=== PATIENT | male | born 1995 | race African-American/Black ===

== ENCOUNTER 2017-07-10 11:52 | Emergency (ER) | payer OTHER ==
[~2017-07-10] VITALS: Ht 172.7 cm; Wt 115.7 kg
--- NOTE | 2017-07-10 12:17 | PHYS DOC ---
Past History Past Medical History: Asthma Past Surgical History: No Surgical History Alcohol Use: None Drug Use: None Adult General Chief Complaint Chief Complaint: FINGER INJURY HPI HPI 22-year-old male presents with right index finger pain. 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 He unfortunately got his right index finger smashed between the 2 pieces. He had pain and bleeding. Some of the skin was torn back just proximal to the nail. This pain is 7 out of 10. He denies any other injury. He has been otherwise healthy lately. His tetanus is not up-to-date Review of Systems Review of Systems Constitutional: Denies fever or chills [] Eyes: Denies change in visual acuity, redness, or eye pain [] HENT: Denies nasal congestion or sore throat [] Respiratory: Denies cough or shortness of breath [] Cardiovascular: No additional information not addressed in HPI [] GI: Denies abdominal pain, nausea, vomiting, bloody stools or diarrhea [] : Denies dysuria or hematuria [] Musculoskeletal: Right index finger pain[] Integument: Denies rash or skin lesions [] Neurologic: Denies headache, focal weakness or sensory changes [] Endocrine: Denies polyuria or polydipsia [] All other systems were reviewed and found to be within normal limits, except as documented in this note. Current Medications Current Medications Current Medications Medications (Trade) Dose Ordered Sig/Chi Start Time Stop Time Status Last Admin Dose Admin Diphtheria/ Tetanus/Acell Pertussis (Boostrix) 0.5 ml ONCE ONCE 07/10/17 12:15 07/10/17 12:16 UNV Allergies Allergies Allergies Coded Allergies Type Severity Reaction Last Updated Verified No Known Drug Allergies 01/13/16 No Physical Exam Physical Exam Constitutional: Well developed, well nourished, no acute distress, non-toxic appearance. [] HENT: Normocephalic, atraumatic, bilateral external ears normal, oropharynx moist, no oral exudates, nose normal. [] Eyes: PERRLA, EOMI, conjunctiva normal, no discharge. [] Neck: Normal range of motion, no tenderness, supple, no stridor. [] Cardiovascular:Heart rate regular rhythm, no murmur [] Lungs & Thorax: Bilateral breath sounds clear to auscultation [] Abdomen: Bowel sounds normal, soft, no tenderness, no masses, no pulsatile masses. [] Skin: 1.5 cm, half cervical skin avulsion of the dorsal aspect of the right index finger. The nail does not appear to be directly involved.[] Back: No tenderness, no CVA tenderness. [] Extremities: No tenderness, no cyanosis, no clubbing, ROM intact, no edema. [] Neurologic: Alert and oriented X 3, normal motor function, normal sensory function, no focal deficits noted. [] Psychologic: Affect normal, judgement normal, mood normal. [] EKG EKG [] Radiology/Procedures Radiology/Procedures History: Trauma to hand. Bruising and swelling. Comparison: None. Findings: Frontal view of the right hand. Oblique and lateral views of the 2nd digit of the right hand. There is a mildly comminuted, obliquely oriented fracture involving the 3rd distal phalanx extending from the distal phalangeal tuft to the just adjacent to the base. Fracture line appears to spare the articular surface. Impression: Acute, nondisplaced 2nd distal phalangeal fracture. Electronically signed by: Jhonatan Kilpatrick MD (07/10/2017 12:30 PM) [id number] [] Course & Med Decision Making Course & Med Decision Making Pertinent Labs and Imaging studies reviewed. (See chart for details) The patient does have a distal second phalanx fracture. Given the tear in the skin, I will treat this as an open fracture. All give him 1 g Rocephin IV in the ED. We will also give him his Tdap. The skin tear is circular in fashion, but well approximated. As this tissue is likely to , I do not believe sutures would be useful. We will leave the flap in place for protection. The patient will be wrapped and splinted with an aluminum and foam finger splint. This was placed by the nurse. [] Dragon Disclaimer Dragon Disclaimer This electronic medical record was generated, in whole or in part, using a voice recognition dictation system. Departure Departure: Referrals: PCP,NO (PCP) Scripts Cephalexin (KEFLEX) 500 Mg Capsule 1 CAP PO BID, #14 CAP Prov: BEN ZUNIGA DO 07/10/17 Hydrocodone Bit/Acetaminophen (NORCO 5-325 TABLET) 1 Each Tablet 1 TAB PO PRN Q6HRS PRN for PAIN, #12 TAB 0 Refills Prov: BEN ZUNIGA DO 07/10/17 BEN ZUNIGA DO Jul 10, 2017 12:17
[2017-07-10] MEDS ORDERED: DIPHTH,PERTUSS(ACELL),TET TOX 0.5 ML DISP.SYRIN. VAX IM ONE (12:30)
--- NOTE | 2017-07-10 12:34 | RAD ---
History: Trauma to hand. Bruising and swelling. Comparison: None. Findings: Frontal view of the right hand. Oblique and lateral views of the 2nd digit of the right hand. There is a mildly comminuted, obliquely oriented fracture involving the 3rd distal phalanx extending from the distal phalangeal tuft to the just adjacent to the base. Fracture line appears to spare the articular surface. Impression: Acute, nondisplaced 2nd distal phalangeal fracture. Electronically signed by: Jhonatan Kilpatrick MD (07/10/2017 12:30 PM) [place] [id number]
[2017-07-10] MEDS ORDERED: HYDR-971 PO (12:40)
[2017-07-10] MEDS ORDERED: CEPH-264 PO (12:40)
[2017-07-10] MEDS ORDERED: cefTRIAXone IM 1 GM VIAL IM ONE ×2 (13:00→13:15)
[2017-07-10] MEDS ORDERED: KETOROLAC 30 MG/ML VIAL. IV ONE (13:00)
[2017-07-10] MEDS ORDERED: cefTRIAXone IV Push 1 GM VIAL. IVP ONE (13:00)
[2017-07-10 13:16] VITALS: BP 144/85
[2017-07-10] MEDS ORDERED: NAPROXEN 500 MG TABLET PO ONE (13:50)
== END 2017-07-10 13:26 | disposition home or self-care (01) ==
LOC: ER 11:52
DX: S62.660B Nondisplaced fracture of distal phalanx of right index finger, initial encounter for open fracture (principal); J45.909 Unspecified asthma, uncomplicated; W23.0XXA Caught, crushed, jammed, or pinched between moving objects, initial encounter; Y93.89 Activity, other specified; Y99.8 Other external cause status; Y92.89 Other specified places as the place of occurrence of the external cause
CPT/HCPCS: 29130; 73140; 90471; 90715; 96372; 99284; J0696

== ENCOUNTER 2020-04-04 03:31 | Emergency (ER) | payer SELFPAY ==
[~2020-04-04] VITALS: Ht 172.7 cm; Wt 123.5 kg
[~2020-04-04 03:31] MED LIST: CEPH-264 PO; HYDR-3165 PO
--- NOTE | 2020-04-04 03:34 | PHYS DOC ---
Past History Past Medical History: Asthma Past Surgical History: No Surgical History Smoking: Cigarettes Alcohol Use: None Drug Use: None General Adult HPI: HPI: ".. Last few days.. it seems like I am having fast heart rate.. or skipping beats,.. She made me come in..." Patient is a 25 year old male who presents with above hx and complaints of episodes of fast heart rate. Patient does not know the rate but states it felt like he was having palpitations or fast heart rate. Patient does smoke tobacco. No previous history of cardiac disorders. No history of drug use. Does smoke tobacco. There is no family history of cardiac disease in his age. Patient denies excessive caffeine use. Does have a history of asthma. No recent travel. No specific ill contacts. Does not follow-up with primary care. No history of coagulopathy. Review of Systems: Review of Systems: Constitutional: Denies fever or chills Eyes: Denies change in visual acuity HENT: Denies nasal congestion or sore throat Respiratory: Denies cough or shortness of breath Cardiovascular: Complains of palpitations GI: Denies abdominal pain, nausea, vomiting, bloody stools or diarrhea : Denies dysuria Musculoskeletal: Denies back pain or joint pain Integument: Denies rash Neurologic: Denies headache, focal weakness or sensory changes Endocrine: Denies polyuria or polydipsia Lymphatic: Denies swollen glands Psychiatric: Denies depression or anxiety Family History: Family History: Mother of cancer Current Medications: Current Meds: See nursing for home meds Allergies: Allergies: Allergies Coded Allergies Type Severity Reaction Last Updated Verified No Known Drug Allergies 01/13/16 No Physical Exam: PE: Constitutional: Well developed, well nourished, no acute distress, non-toxic appearance. [] HENT: Normocephalic, atraumatic, bilateral external ears normal, oropharynx moist, no oral exudates, nose normal. Teardrop tattoo right eye with initials of his mother. Eyes: PERRLA, EOMI, conjunctiva normal, no discharge. [] Neck: Normal range of motion, no tenderness, supple, no stridor. [] Cardiovascular:Heart rate regular rhythm, no murmur [] Lungs & Thorax: Bilateral breath sounds equal apex with scattered wheezes on auscultation [] Abdomen: Bowel sounds normal, soft, no tenderness, no masses, no pulsatile masses. [] Skin: Warm, dry, no erythema, no rash. [] Back: No tenderness, no CVA tenderness. [] Extremities: No tenderness, no cyanosis, no clubbing, ROM intact, no edema. No cording noted in legs Neurologic: Alert and oriented X 3, normal motor function, normal sensory function, no focal deficits noted. [] Psychologic: Affect anxious , judgement normal, mood normal. [] EKG: EKG: My interpretation EKG 1 shows sinus rhythm at 70 bpm. No acute morphology time 346 My interpretation EKG 2, shows a sinus rhythm 71 bpm. No acute morphology. Overall appearance the same as prior EKG there was slight change in lead II-due to lead sticker change 0510 hrs. Radiology/Procedures: Radiology/Procedures: [][address] [address] IMAGING REPORT Signed PATIENT: LOUIS STERN ACCOUNT: [id number] : 1995 LOCATION: ER AGE: 25 SEX: M EXAM STATUS: REG ER ORD. PHYSICIAN: ABHAY HAMEED MD REASON: cp PROCEDURE: PORTABLE CHEST 1V Study: XR CHEST 1V Indication: Chest pain. Comparison: 01/13/2016 Findings: The cardiomediastinal silhouette and peter are within normal limits. No localized airspace opacity, pleural effusion or pneumothorax. Impression: No acute radiographic abnormality of the chest. No relevant change from the 01/13/2016 comparison. Electronically signed by: NICOLE DEL CID MD (04/04/2020 4:09 AM) [facility] DICTATED AND SIGNED BY: NICOLE DEL CID MD DATE: 04/04/20 0408 CC: ABHAY HAMEED MD; PCP,NO ~MTH0 0 Heart Score: HEART Score for Chest Pain: HEART Score for Chest Pain Response (Comments) Value History Slighlty/Non-Suspicious 0 ECG Normal 0 Age < 45 0 Risk Factors 1 or 2 Risk Factors 1 Troponin < Normal Limit 0 Total 1 Risk Factors: Risk Factors: DM, Current or recent (<one month) smoker, HTN, HLP, family history of CAD, obesity. Risk Scores: Score 0 - 3: 2.5% MACE over next 6 weeks - Discharge Home Score 4 - 6: 20.3% MACE over next 6 weeks - Admit for Clinical Observation Score 7 - 10: 72.7% MACE over next 6 weeks - Early Invasive Strategies Course & Med Decision Making: Course & Med Decision Making Pertinent Labs and Imaging studies reviewed. (See chart for details) Patient requesting discharge 0500 hrs. Reviewed risk and need to stop smoking. Patient take a daily aspirin. Patient follow-up primary care. Patient return if any concerns. Avoid caffeine products. Take pulse when he has another episode determine rate. Consider outpatient stress testing. Follow-up pending labs. Impression: 1. Complaints of Palpitations 2. Tobacco Use 3. Hx. of Asthma [] Dragon Disclaimer: Dragon Disclaimer: This electronic medical record was generated, in whole or in part, using a voice recognition dictation system. Departure Departure: Referrals: PCP,NO (PCP) Dragon Disclaimer This chart was dictated in whole or in part using Voice Recognition software in a busy, high-work load, and often noisy Emergency Department environment. It may contain unintended and wholly unrecognized errors or omissions. Dragon Disclaimer This chart was dictated in whole or in part using Voice Recognition software in a busy, high-work load, and often noisy Emergency Department environment. It may contain unintended and wholly unrecognized errors or omissions. ABHAY HAMEED MD Apr 04, 2020 03:34
[2020-04-04] MEDS ORDERED: ASPIRIN CHEWABLE 81 MG TABLET. PO ONE (04:00)
[2020-04-04] MEDS ORDERED: IV RINGERS SOLUTION,LACTATED 1,000 ML IV SCH (04:00)
--- NOTE | 2020-04-04 04:11 | RAD ---
Study: XR CHEST 1V Indication: Chest pain. Comparison: 01/13/2016 Findings: The cardiomediastinal silhouette and peter are within normal limits. No localized airspace opacity, pl eural effusion or pneumothorax. Impression: No acute radiographic abnormality of the chest. No relevant change from the 01/13/2016 comparison. Electronically signed by: NICOLE DEL CID MD (04/04/2020 4:09 AM) [facility]
[2020-04-04 04:28] LABS: BASO % 0 % (0-3); EOS # 0.1 x10^3/uL (0.0-0.7); EOS % 2 % (0-3); HEMATOCRIT 43.1 % (39.0-53.0); HEMOGLOBIN 14.9 g/dL (13.0-17.5); LYMPH # 3.7 x10^3/uL (1.0-4.8); LYMPH % 48 % (24-48); MEAN CORPUSCULAR HEMOGLOBIN 30 pg (25-35); MEAN CORPUSCULAR HGB CONC 35 g/dL (31-37); MEAN CORPUSCULAR VOLUME 87 fL (79-100); MONO # 0.6 x10^3/uL (0.0-1.1); MONO % 8 % (0-9); NEUT # 3.3 x10^3uL (1.8-7.7); NEUT % 42 % (31-73); PLATELET COUNT 275 x10^3/uL (140-400); RED BLOOD COUNT 4.98 x10^6/uL (4.30-5.70); RED CELL DISTRIBUTION WIDTH 13.1 % (11.5-14.5); WHITE BLOOD COUNT 7.8 x10^3/uL (4.0-11.0)
[2020-04-04 04:35] LABS: CALCIUM 8.8 mg/dL (8.5-10.1); CREATININE 1.1 mg/dL (0.7-1.3); GFR 97.2; POTASSIUM 3.7 mmol/L (3.5-5.1)
[2020-04-04 04:47] VITALS: BP 120/79
[2020-04-04 04:50] LABS: ALBUMIN 3.7 g/dL (3.4-5.0); TOTAL BILIRUBIN 0.4 mg/dL (0.2-1.0)
[2020-04-04] MEDS ORDERED: SULF1TAB24 PO (04:57)
[2020-04-04 05:00] LABS: DIRECT BILIRUBIN 0.1 mg/dL (0.0-0.2)
[2020-04-04 05:04] LABS: BARBITURATES NEG (NEG); BENZODIAZEPINES NEG (NEG); CANNABINOIDS NEG (NEG); COCAINE NEG (NEG); METHADONE NEG (NEG); OPIATES NEG (NEG); PHENCYCLIDINE NEG (NEG)
[2020-04-04 05:05] LABS: AMPHETAMINE/METHAMPHETAMINE NEG (NEG)
[2020-04-04 05:06] LABS: BILIRUBIN,URINE NEG (NEG); CLARITY,URINE CLEAR; COLOR,URINE YELLOW; GLUCOSE,URINE NEG (NEG)
[2020-04-04 05:07] LABS: BACTERIA,URINE 0 /HPF (0-FEW); NITRITE,URINE NEG (NEG); RBC,URINE 0 /HPF (0-2); SQUAMOUS EPITHELIAL CELL,UR OCC /LPF; WBC,URINE RARE /HPF (0-4)
--- NOTE | 2020-04-04 06:10 | EKG ---
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
--- NOTE | 2020-04-04 06:19 | EKG ---
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
== END 2020-04-04 05:20 | disposition home or self-care (01) ==
LOC: ER 03:31
DX: R00.2 Palpitations (principal); J45.909 Unspecified asthma, uncomplicated; F17.210 Nicotine dependence, cigarettes, uncomplicated
CPT/HCPCS: 36415; 71045; 80048; 80061; 80076; 80307; 81001; 82550; 83690; 83735; 83880; 84443; 84484; 85025; 85379; 85610; 85730; 93005; 96360; 99285; J7120

== ENCOUNTER 2020-08-13 11:05 | Emergency (ER) | payer MEDICAID, OTHER ==
[~2020-08-13] VITALS: Ht 172.7 cm; Wt 123.5 kg
[~2020-08-13 11:05] MED LIST changes: +SULF1TAB24 PO
[2020-08-13 11:14] VITALS: BP 140/79
[2020-08-13] MEDS ORDERED: HYDROcodone/APAP 5/325MG 1 TAB TABLET PO ONE (12:00)
[2020-08-13] MEDS ORDERED: PENICILLIN V K 250 MG TABLET. PO ONE (12:00)
[2020-08-13] MEDS ORDERED: PENI500T PO (12:07)
[2020-08-13] MEDS ORDERED: HYDR-2759 PO (12:07)
--- NOTE | 2020-08-13 12:09 | PHYS DOC ---
Past History Past Medical History: Asthma (BLAYNE BURCH APRN) Past Surgical History: No Surgical History (BLAYNE BURCH APRN) Smoking: Cigarettes Alcohol Use: None Drug Use: None (BLAYNE BURCH APRN) General Adult EDM: Chief Complaint: DENTAL PROBLEM HPI: HPI: Patient is a 25-year-old male presents to the ER today for dental pain and swelling that started 5 days ago. He rates the pain 10 out of 10 and describes it as a sharp pain, no radiation of pain, he has been using Orajel rinse. Patient reports that he does have a dentist and does have an appointment made. Patient denies difficulty breathing/shortness of breath, drooling, difficulty swallowing, fevers, sore throat, phonation changes. (BLAYNE BURCH APRN) Review of Systems: Review of Systems: 14 body systems of the review of systems have been reviewed. See HPI for pertinent positive and negative responses, otherwise all other systems are negative, nonpertinent or noncontributory (BLAYNE BURCH APRN) Allergies: Allergies: Allergies Coded Allergies Type Severity Reaction Last Updated Verified No Known Drug Allergies 01/13/16 No (BLAYNE BURCH APRN) Physical Exam: PE: General: Appears well, nontoxic, and comfortable skin: Warm, dry. Head: Atraumatic EENT: PERRL, moist mucous membranes, uvula midline, no trismus, maintaining secretions, no phonation changes, no facial swelling, no. Apical abscess, mild swelling along the left lower back molar Neck: Trachea midline, normal range of motion, no stridor respiratory: Normal work of breathing, no tachypnea cardiovascular: Normal peripheral perfusion musculoskeletal: Normal range of motion neuro alert and oriented x4, no focal deficits lymph: No cervical lymphadenopathy psych: Normal affect and mood (BLAYNE BURCH APRN) Current Patient Data: Vital Signs: Vital Signs Date Time Temp Pulse Resp B/P (MAP) Pulse Ox O2 Delivery O2 Flow Rate FiO2 08/13/20 11:14 98.7 73 16 140/79 100 Room Air (BLAYNE BURCH APRN) EKG: EKG: [] (BLAYNE BURCH APRN) Radiology/Procedures: Radiology/Procedures: [] (BLAYNE BURCH APRN) Heart Score: C/O Chest Pain: No Risk Factors: Risk Factors: DM, Current or recent (<one month) smoker, HTN, HLP, family hist ory of CAD, obesity. Risk Scores: Score 0 - 3: 2.5% MACE over next 6 weeks - Discharge Home Score 4 - 6: 20.3% MACE over next 6 weeks - Admit for Clinical Observation Score 7 - 10: 72.7% MACE over next 6 weeks - Early Invasive Strategies (BLAYNE BURCH APRN) Course & Med Decision Making: Course & Med Decision Making Pertinent Labs and Imaging studies reviewed. (See chart for details) Patient was seen in the ER today for dental pain and swelling started 5 days ago. He has mild swelling along the gingiva of his left lower molar, it is likely the patient has a dental infection. Patient was treated in the ER today with a tablet of [address] and his first dose of penicillin VK. Narcotic history reviewed. Patient was also sent home with penicillin VK and pain medication. Patient to follow-up with his dentist. I discussed with patient all findings and diagnostic testing as well as the need to follow-up with PCP for further evaluation and treatment or return to the ER if any new or worsening symptoms. Strict return precautions were also discussed at length. Patient voiced understanding and agreement with the plan. Patient is hemodynamically stable at the time of disposition. (BLAYNE BURCH APRN) Dragon Disclaimer: Dragon Disclaimer: This electronic medical record was generated, in whole or in part, using a voice recognition dictation system. (BLAYNE BURCH APRN) Attending Co-Sign The patient was seen and interviewed as well as examined at the bedside. The chart was reviewed. The case was discussed. Agree with the plan of care. (BEN ZUNIGA DO) Departure Departure: Impression: Primary Impression: Dental infection Disposition: HOME / SELF CARE / HOMELESS Condition: GOOD Referrals: PCP,NO (PCP) Patient Instructions: Dental Pain, [id number] Additional Instructions: You were seen in the ER today for dental pain and swelling. It is likely that you have a dental infection due to the swelling along your gums. As we discu ssed, treatment for this includes an antibiotic. You may take ibuprofen or Tylenol at home for mild pain and you can take [address] for severe pain. This medication contains hydrocodone and it may cause sedation. Please caution taking it when you need to be alert and do not take it with alcohol. While in the ER you were given an antibiotic and pain medication. It is important that you follow-up with your dentist as soon as possible. If you develop worsening of your pain, difficulty swallowing, difficulty breathing, high fevers, drooling please return to the ER immediately. Thank you for choosing [facility] and allowing me to participate in your care. EMERGENCY DEPARTMENT GENERAL DISCHARGE INSTRUCTIONS Thank you for coming to [facility] (ED) today and trusting us with you care. We trust that you had a positivie experience in our Emergency Department. If you wish to speak to the department management, you may call the director at [phone]. YOUR FOLLOW UP INSTRUCTIONS ARE FOLLOWS: 1. Do you have a private Doctor? If you do not have a private doctor, please ask for a resource list of physicians or clinics that may be able to assist you with follow up care. 2. The Emergency Physician has interpreted your x-rays. The X-Ray specialist will also review them. If there is a change in the findings, you will be notified in 48 hours when at all possible. 3. A lab test or culture has been done, your results will be reviewed and you will be notified if you need a change in treatment. ADDITIONAL INSTRUCTIONS AND INFORMATION: 1. Your care today has been supervised by a physician who is specially trained in emergency care. Many problems require more than one evaluation for a complete diagnosis and treatment. We recommend that you schedule your follow up appointment as recommended to ensure complete treatment of you illness or injury. If you are unable to obtain follow up care and continue to have a problem, or if your condition worsens, we recommend that you return to the ED. 2. We are not able to safely determine your condition over the phone nor are we able to give sound medical advice over the phone. For these safety reasons, if you call for medical advice we will ask you to come to the ED for further evaluation. 3. If you have any questions regarding these discharge instructions please call the ED at [phone]. SAFETY INFORMATION: In the interest of safety, wellness, and injury prevention; we encourage you to wear your sealbelt, if you smoke; quite smoking, and we encourage family to use a protective helmet for bicycling and other sporting events that present an increased risk for head injury. IF YOUR SYMPTOMS WORSEN OR NEW SYMPTOMS DEVELOP, OR YOU HAVE CONCERNS ABOUT YOUR CONDITION; OR IF YOUR CONDITION WORSENS WHILE YOU ARE WAITING FOR YOUR FOLLOW UP APPOINTMENT; EITHER CONTACT YOUR PRIMARY CARE DOCTOR, THE PHYSICIAN WHOSE NAME AND NUMBER YOU WERE GIVEN, OR RETURN TO THE ED IMMEDIATELY. Scripts Hydrocodone/Acetaminophen (Hydrocodone-Acetamin 5-325 mg) 1 Each Tablet 1 EACH PO Q6HRS for dental pain for 1 Day, #4 TAB 0 Refills Prov: BLAYNE BURCH APRN 08/13/20 Penicillin V Potassium (PENICILLIN V POTASSIUM) 500 Mg Tablet 1 TAB PO QID for dental infection for 7 Days, #28 TAB 0 Refills Prov: BLAYNE BURCH APRN 08/13/20 BLAYNE BURCH APRN Aug 13, 2020 12:09 BEN ZUNIGA DO Aug 15, 2020 08:42
== END 2020-08-13 12:34 | disposition home or self-care (01) ==
LOC: ER 11:05
DX: K04.7 Periapical abscess without sinus (principal); J45.909 Unspecified asthma, uncomplicated; F17.210 Nicotine dependence, cigarettes, uncomplicated
CPT/HCPCS: 99283

== ENCOUNTER 2020-08-15 22:21 | Emergency (ER) | payer OTHER ==
[~2020-08-15] VITALS: Ht 172.7 cm; Wt 123.5 kg
[~2020-08-15 22:21] MED LIST changes: +HYDR-2759 PO; +PENI500T PO
--- NOTE | 2020-08-15 23:09 | PHYS DOC ---
Past History Past Medical History: Asthma Past Surgical History: No Surgical History Smoking: Cigarettes Alcohol Use: None Drug Use: None General Adult EDM: Chief Complaint: Toothache HPI: HPI: ".. I got a dentist apt. ..but the pain is so bad... the dentist told me to go to the ER.. and get more meds... " Patient is a 25 year old male who presents with dental pain. Patient seen previously seen in our emergency room on 08/13/2020 for dental pain. Patient localizes pain in molar 17. Has had periodic drainage of pus from this area. Does have a pointing abscess currently. Patient denies any recent travel. Patient denies any specific ill contacts. Patient denies any history of immunos uppression. Patient does have some adenopathy at the angle of mandible. Review of Systems: Review of Systems: Constitutional: Denies fever or chills Eyes: Denies change in visual acuity HENT: Complains of dental pain Respiratory: Denies cough or shortness of breath Cardiovascular: Denies chest pain or edema GI: Denies abdominal pain, nausea, vomiting, bloody stools or diarrhea : Denies dysuria Musculoskeletal: Denies back pain or joint pain Integument: Denies rash Neurologic: Denies headache, focal weakness or sensory changes Endocrine: Denies polyuria or polydipsia Lymphatic: Denies swollen glands Psychiatric: Denies depression or anxiety Family History: Family History: Noncontributory to presentation Current Medications: Current Meds: See nursing for home meds Allergies: Allergies: Allergies Coded Allergies Type Severity Reaction Last Updated Verified No Known Drug Allergies 01/13/16 No Physical Exam: PE: Constitutional: Well developed, well nourished, in acute distress, non-toxic appearance. [] HENT: Normocephalic, atraumatic, bilateral external ears normal, oropharynx moist, no oral exudates, nose normal. Molar 17 is the most tender percussion. Has other areas of dental decay. Does have a pointing abscess at molar 17. No trismus. Eyes: PERRLA, EOMI, conjunctiva normal, no discharge. [] Neck: Normal range of motion, no tenderness, supple, no stridor. [] Annual mandible left has some adenopathy. Cardiovascular:Heart rate regular rhythm, no murmur [] Lungs & Thorax: Bilateral breath sounds equal apex with few scattered wheezes auscultation [] Abdomen: Bowel sounds normal, soft, no tenderness, no masses, no pulsatile masses. [] Skin: Warm, dry, no erythema, no rash. [] Back: No tenderness, no CVA tenderness. [] Extremities: No tenderness, no cyanosis, no clubbing, ROM intact, no edema. [] Neurologic: Alert and oriented X 3, normal motor function, normal sensory function, no focal deficits noted. [] Psychologic: Affect anxious , judgement normal, mood normal. [] EKG: EKG: [] Radiology/Procedures: Radiology/Procedures: [] Heart Score: C/O Chest Pain: N/A Risk Factors: Risk Factors: DM, Current or recent (<one month) smoker, HTN, HLP, family history of CAD, obesity. Risk Scores: Score 0 - 3: 2.5% MACE over next 6 weeks - Discharge Home Score 4 - 6: 20.3% MACE over next 6 weeks - Admit for Clinical Observation Score 7 - 10: 72.7% MACE over next 6 weeks - Early Invasive Strategies Course & Med Decision Making: Course & Med Decision Making Pertinent Labs and Imaging studies reviewed. (See chart for details) Procedure note-I&D pointing abscess-mouth rinse with peroxide. Using 11 blade to drain the pointing abscess near molar 17. Patient is rinse mouth with peroxide at least 4 times a day and as needed. Patient continue current antibiotics. Patient take Tylenol and ibuprofen. For marked pain may take Vicoprofen. Patient did receive an IM injection of Rocephin and Toradol. Impression: 1. Dental pain 2. Dental abscess [] Dragon Disclaimer: Alana Disclaimer: This electronic medical record was generated, in whole or in part, using a voice recognition dictation system. Departure Departure: Referrals: PCP,NO (PCP) Scripts Hydrocodone/Ibuprofen (HYDROCODONE-IBUPROFEN 7.5-200 ) 1 Each Tablet 1 TAB PO PRN Q6HRS PRN for PAIN, #30 TAB 0 Refills Prov: ABHAY HAMEED MD 08/16/20 ABHAY HAMEED MD Aug 15, 2020 23:08
[2020-08-15] MEDS ORDERED: MORPHINE SULFATE 10 MG/ML SYRINGE. SQ ONE (23:15)
[2020-08-15] MEDS ORDERED: cefTRIAXone IM 1 GM VIAL IM ONE (23:15)
[2020-08-16] MEDS ORDERED: KETOROLAC 60 MG/2 ML VIAL. IM ONE (01:00)
[2020-08-16] MEDS ORDERED: HYDR-1179 PO (01:06)
[2020-08-16 01:20] VITALS: BP 158/92
== END 2020-08-16 01:30 | disposition home or self-care (01) ==
LOC: ER 22:21
DX: K04.7 Periapical abscess without sinus (principal); J45.909 Unspecified asthma, uncomplicated; F17.210 Nicotine dependence, cigarettes, uncomplicated
CPT/HCPCS: 96372; 99284; J0696; J1885; J2270